=== PATIENT | male | born 1995 | race Caucasian/White ===

== ENCOUNTER 2023-12-31 13:04 | Emergency (ER) | payer OTHER, MEDICAID ==
[~2023-12-31] VITALS: Ht 165.1 cm; Wt 77.1 kg
[2023-12-31 13:59] VITALS: BP 143/92; PULSE 119; RESP 18; TEMP 97.5; O2SAT 100
[2023-12-31] MEDS ORDERED: ACET-10509 PO (16:28)
== END 2023-12-31 17:42 | disposition left against medical advice (07) ==
LOC: MED 13:04
DX: S43.492A Other sprain of left shoulder joint, initial encounter (principal); S20.212A Contusion of left front wall of thorax, initial encounter; S06.0X0A Concussion without loss of consciousness, initial encounter; V49.88XA Car occupant (driver) (passenger) injured in other specified transport accidents, initial encounter; Y93.89 Activity, other specified; Y92.89 Other specified places as the place of occurrence of the external cause; Y99.8 Other external cause status
CPT/HCPCS: 70450; 71250; 72125; 73030; 99284